=== PATIENT | male | born 1985 | race African-American/Black ===

== ENCOUNTER 2024-06-16 21:28 | Emergency (ER) | payer SELFPAY ==
[~2024-06-16] VITALS: Ht 172.7 cm; Wt 77.0 kg
[2024-06-16 21:32] VITALS: TEMP 37; O2SAT 98
[2024-06-16 22:38] LABS: BASOPHILS % 0.6 % (0.0-2.0); EOSINOPHILS % 0.2 % (0.0-5.0); HEMATOCRIT. 47.7 % (42.0-52.0); HEMOGLOBIN. 15.3 g/dL (14.0-18.0); LYMPHOCYTES % 9.1 % (20.0-50.0); MEAN CORPUSCULAR HEMOGLOBIN 29.2 pg (28.0-32.0); MEAN CORPUSCULAR HGB CONC 32.2 g/dL (31.0-37.0); MEAN CORPUSCULAR VOLUME 90.9 fL (80.0-94.0); MEAN PLATELET VOLUME 8.4 fl (7.4-10.4); MONOCYTES % 8.3 % (2.0-8.0); NEUTROPHILS % 81.8 % (40.0-76.0); PLATELET 222 x1000/uL (130-400); RED BLOOD CELL COUNT 5.24 mill/uL (4.7-6.1); RED CELL DISTRIBUTION WIDTH 13.5 % (11.6-14.6); WHITE BLOOD COUNT 12.9 x1000/uL (4.5-11.0)
[2024-06-16 22:47] LABS: CHLORIDE 102 mEq/L (98-107); POTASSIUM 3.6 mEq/L (3.5-5.1); SODIUM 142 mEq/L (136-145)
[2024-06-16 22:48] LABS: CLARITY URINE CLEAR (CLEAR); COLOR URINE YELLOW (YELLOW); GLUCOSE URINE NEGATIVE (NEGATIVE); KETONES URINE TRACE (NEGATIVE); LEUKOCYTE ESTERASE URINE NEGATIVE (NEGATIVE); NITRITE URINE NEGATIVE (NEGATIVE); OCCULT BLOOD URINE TRACE (NEGATIVE); PH URINE 6.5 (4.5-8.0); PROTEIN URINE 2+ (NEGATIVE); SPECIFIC GRAVITY URINE 1.022 (1.005-1.030)
[2024-06-16 22:48] LABS: CALCIUM 9.8 mg/dL (8.7-10.4); CARBON DIOXIDE 29 mEq/L (21-32)
[2024-06-16 22:53] LABS: CREATININE 1.1 mg/dL (0.6-1.3); ETHANOL BLOOD < 10 mg/dL (<10); GLUCOSE 152 mg/dL (70-105); TROPONIN I HIGH SENSITIVITY 16 ng/L (3.0-53); UREA NITROGEN BLOOD 7 mg/dL (9-23)
[2024-06-16 23:02] LABS: WBC URINE NONE SEEN /hpf (0-2)
[2024-06-16 23:03] LABS: BACTERIA URINE NONE SEEN; SQUAMOUS EPITHELIAL CELL URINE RARE /lpf (RARE/1+)
[2024-06-16 23:10] LABS: *AMPHETAMINES SCREEN URINE PRESUMPTIVE POSITIVE (NEGATIVE); *BARBITURATES SCREEN URINE NEGATIVE (NEGATIVE); *BENZODIAZEPINES SCREEN URINE NEGATIVE (NEGATIVE); *COCAINE SCREEN URINE NEGATIVE (NEGATIVE); CANNABINOID URINE SCREEN NEGATIVE (NEGATIVE); ECSTASY MDMA SCREEN URINE NEGATIVE (NEGATIVE); METHADONE URINE SCREEN NEGATIVE (NEGATIVE); OPIATES URINE SCREEN NEGATIVE (NEGATIVE); PHENCYCLIDINE URINE SCREEN NEGATIVE (NEGATIVE)
[2024-06-17 00:48] LABS: TROPONIN I HIGH SENSITIVITY 22 ng/L (3.0-53)
[2024-06-17] MEDS ORDERED: NALO4SPR BOTHNSTRLS (01:18)
[2024-06-17 02:48] VITALS: BP 168/100; PULSE 108; RESP 20; O2SAT 96
== END 2024-06-17 02:45 | disposition home or self-care (01) ==
LOC: ER 21:28
DX: R55 Syncope and collapse (principal); F15.90 Other stimulant use, unspecified, uncomplicated; F11.90 Opioid use, unspecified, uncomplicated; Z79.899 Other long term (current) drug therapy
CPT/HCPCS: 36415; 71045; 80048; 80305; 80320; 81003; 84484; 85025; 93005; 99285; G0480